=== PATIENT | male | born 1945 | race Caucasian/White ===

== ENCOUNTER 2016-08-01 11:20 | Emergency (ER) | payer MEDICARE, OTHER ==
[2016-08-01 12:57] LABS: HEMOGLOBIN 12.9 gm/dl (14.0-17.5); RED BLOOD COUNT 4.34 M/UL (4.20-5.50); WHITE BLOOD COUNT 6.9 K/UL (4.5-11.0)
[2016-08-01 13:18] LABS: BUN/CREATININE RATIO 15 (0-10)
== END 2016-08-01 16:05 | disposition home or self-care (01) ==
LOC: ER1 11:20
PROVIDERS: Physician Assistant Medical
DX: R10.84 Generalized abdominal pain (principal); E11.9 Type 2 diabetes mellitus without complications; I10 Essential (primary) hypertension
CPT/HCPCS: 36415; 80053; 81001; 82150; 83605; 83690; 85025; 99284; J7050; Q9962

== ENCOUNTER 2020-06-03 09:27 | Emergency (ER) | payer MEDICARE, OTHER ==
[~2020-06-03 09:27] MED LIST: AUGMENTIN 875-1 EACH PO; CALCIUM 600 +1 EAC3 PO; CLARITIN10 MG PO; COL-RITE250 MG PO; ECOTRIN81 MG PO; FLEXERIL 10 MG10 MG PO; HYDROCODON-ACE1 EAC6 PO; KLONOPIN1 MG PO; LEVEMIR100 UNIT/1 SQ; LIPITOR TAB 2020 MG PO; MIRTAZAPINE45 MG PO; MOBIC7.5 MG PO; NEURONTIN 300300 MG PO; NOVOLOG100 UNIT/1 SQ; ZESTRIL40 MG PO
[2020-06-03 10:46] LABS: HEMOGLOBIN 14.2 gm/dl (14.0-17.5); RED BLOOD COUNT 4.72 M/UL (4.20-5.50); WHITE BLOOD COUNT 5.6 K/UL (4.5-11.0)
[2020-06-03 11:34] LABS: BUN/CREATININE RATIO 8 (0-10)
[2020-06-03] MEDS ORDERED: OMNICEF 300 MG300 MG PO (11:51)
[2020-06-03] MEDS ORDERED: ZITHROMAX250 MG PO (11:51)
[2020-06-03] MEDS ORDERED: TESSALON PERLE100 MG PO (11:52)
== END 2020-06-03 11:59 | disposition home or self-care (01) ==
LOC: ER1 09:27
PROVIDERS: Physician Assistant
DX: J18.9 Pneumonia, unspecified organism (principal); R42 Dizziness and giddiness; Z20.822 Contact with and (suspected) exposure to COVID-19
CPT/HCPCS: 0240U; 71045; 80053; 82550; 82553; 83874; 84484; 85025; 93005; 99284

== ENCOUNTER 2020-12-19 12:22 | Emergency (ER) | payer MEDICARE, OTHER ==
[~2020-12-19 12:22] MED LIST changes: +OMNICEF 300 MG300 MG PO; +TESSALON PERLE100 MG PO; +ZITHROMAX250 MG PO
[2020-12-19 13:13] LABS: HEMOGLOBIN 15.8 gm/dl (14.0-17.5); RED BLOOD COUNT 5.22 M/UL (4.20-5.50); WHITE BLOOD COUNT 7.3 K/UL (4.5-11.0)
[2020-12-19 13:41] LABS: BUN/CREATININE RATIO 10 (0-10)
[2020-12-19] MEDS ORDERED: MEDROL4 MG PO (23:25)
[2020-12-19] MEDS ORDERED: ZITHROMAX500 MG PO (23:25)
== END 2020-12-19 23:45 | disposition home or self-care (01) ==
LOC: ER1 12:22
PROVIDERS: Physician Assistant
DX: J32.9 Chronic sinusitis, unspecified (principal); E11.9 Type 2 diabetes mellitus without complications; I10 Essential (primary) hypertension; Z20.822 Contact with and (suspected) exposure to COVID-19
CPT/HCPCS: 70450; 80053; 81001; 82550; 82553; 83874; 84484; 85025; 93005; 96372; 99284; J2930; U0002

== ENCOUNTER 2021-01-10 13:02 | Observation (INO) | payer MEDICARE, OTHER ==
[~2021-01-10] VITALS: Ht 175.3 cm; Wt 83.5 kg
[~2021-01-10 13:02] MED LIST changes: +MEDROL4 MG PO; +ZITHROMAX500 MG PO
[2021-01-10 14:14] LABS: HEMOGLOBIN 15.3 gm/dl (14.0-17.5); RED BLOOD COUNT 5.25 M/UL (4.20-5.50); WHITE BLOOD COUNT 7.8 K/UL (4.5-11.0)
[2021-01-10 14:44] LABS: BUN/CREATININE RATIO 13 (0-10)
[2021-01-11 08:27] LABS: HEMOGLOBIN 15.4 gm/dl (14.0-17.5); RED BLOOD COUNT 5.33 M/UL (4.20-5.50); WHITE BLOOD COUNT 6.2 K/UL (4.5-11.0)
--- NOTE | 2021-01-12 01:51 | NUR ---
PT STATED TO PRIMARY RN THAT HE DOES NOT WANT TO BE WOKEN UP FOR VITAL SIGNS IF HE IS SLEEPING. TECH MADE AWARE AND PATIENT NOT DISTURED WHILE SLEEPING FOR VS CHECKS. KODAK
[2021-01-12] MEDS ORDERED: MECLIZINE HCL25 MG PO (08:33)
[2021-01-12] MEDS ORDERED: ZESTRIL2.5 MG PO (08:33)
[2021-01-12] MEDS ORDERED: LEVEMIR100 UNIT/1 SQ (08:33)
== END 2021-01-12 09:48 | disposition home or self-care (01) ==
LOC: ER1 13:02 → M/S 17:29 → CDU 17:29 → M/S 20:27
PROVIDERS: Physician Assistant; ADMIT Internal Medicine
DX: R55 Syncope and collapse (principal); N17.9 Acute kidney failure, unspecified; I12.9 Hypertensive chronic kidney disease with stage 1 through stage 4 chronic kidney disease, or unspecified chronic kidney disease; E11.22 Type 2 diabetes mellitus with diabetic chronic kidney disease; N18.30 Chronic kidney disease, stage 3 unspecified; J44.9 Chronic obstructive pulmonary disease, unspecified; E03.9 Hypothyroidism, unspecified; E78.5 Hyperlipidemia, unspecified; E11.65 Type 2 diabetes mellitus with hyperglycemia; G89.29 Other chronic pain; F41.9 Anxiety disorder, unspecified; F32.9 Major depressive disorder, single episode, unspecified; Z99.81 Dependence on supplemental oxygen; Z86.16 Personal history of COVID-19; Z23 Encounter for immunization; Z79.4 Long term (current) use of insulin; Z79.891 Long term (current) use of opiate analgesic; Z79.1 Long term (current) use of non-steroidal anti-inflammatories (NSAID); Z79.82 Long term (current) use of aspirin; Z79.899 Other long term (current) drug therapy; Z20.822 Contact with and (suspected) exposure to COVID-19
CPT/HCPCS: ECHO; 36415; 70450; 70551; 71045; 80048; 80053; 80061; 80307; 81001; 82550; 82553; 82962; 83036; 83874; 84439; 84443; 84484; 85025; 85027; 90686; 93005; 93306; 93880; 97116-GP-CQ; 97161; 97166; 99285; G0008; G0378; J7040; U0002

== ENCOUNTER 2021-02-06 14:15 | Observation (INO) | payer MEDICARE, OTHER ==
[~2021-02-06] VITALS: Ht 175.3 cm; Wt 78.5 kg
[~2021-02-06 14:15] MED LIST changes: +MECLIZINE HCL25 MG PO; +ZESTRIL2.5 MG PO
[2021-02-06 15:40] LABS: HEMOGLOBIN 16.4 gm/dl (14.0-17.5); RED BLOOD COUNT 5.43 M/UL (4.20-5.50); WHITE BLOOD COUNT 6.9 K/UL (4.5-11.0)
[2021-02-06 16:10] LABS: BUN/CREATININE RATIO 6 (0-10)
[2021-02-07 06:49] LABS: WHITE BLOOD COUNT 6.1 K/UL (4.5-11.0)
[2021-02-07 07:29] LABS: RED BLOOD COUNT 4.64 M/UL (4.20-5.50)
[2021-02-07 08:09] LABS: BUN/CREATININE RATIO 6 (0-10)
[2021-02-07] MEDS ORDERED: AUGMENTIN 875-1 EACH PO (10:47)
[2021-02-07] MEDS ORDERED: ZITHROMAX250 MG PO (10:47)
[2021-02-07] MEDS ORDERED: ZITHROMAX500 MG PO (12:22)
[2021-02-07] MEDS ORDERED: LEVEMIR100 UNIT/1 SQ (12:27)
[2021-02-07] MEDS ORDERED: DEX4 GLUCOSE4 GM PO (12:27)
== END 2021-02-07 17:36 | disposition home or self-care (01) ==
LOC: ER1 14:15 → MED SURG 4 18:07 → CDU 18:07 → MED SURG 4 22:20
PROVIDERS: Student in an Organized Health Care Education/Training Program; ADMIT Internal Medicine
DX: R42 Dizziness and giddiness (principal); R41.0 Disorientation, unspecified; H53.9 Unspecified visual disturbance; E11.22 Type 2 diabetes mellitus with diabetic chronic kidney disease; N18.9 Chronic kidney disease, unspecified; J44.9 Chronic obstructive pulmonary disease, unspecified; E03.9 Hypothyroidism, unspecified; I10 Essential (primary) hypertension; E78.5 Hyperlipidemia, unspecified; K59.09 Other constipation; G89.4 Chronic pain syndrome; Z79.4 Long term (current) use of insulin; Z20.822 Contact with and (suspected) exposure to COVID-19; E11.40 Type 2 diabetes mellitus with diabetic neuropathy, unspecified; J18.9 Pneumonia, unspecified organism; Z79.82 Long term (current) use of aspirin; G92.9 Unspecified toxic encephalopathy
CPT/HCPCS: 36415; 36600; 70450; 71045; 71046; 80053; 80307; 81001; 82140; 82550; 82553; 82803; 82962; 83605; 83874; 84484; 85025; 85027; 87040; 93005; 96372; 96374; 97161; 99285; G0378; J0696; J1650; J7030; U0002

== ENCOUNTER 2021-02-26 10:55 | Emergency (ER) | payer MEDICARE, OTHER ==
[~2021-02-26 10:55] MED LIST changes: +DEX4 GLUCOSE4 GM PO
[2021-02-26 11:57] LABS: HEMOGLOBIN 14.1 gm/dl (14.0-17.5); RED BLOOD COUNT 4.66 M/UL (4.20-5.50); WHITE BLOOD COUNT 6.4 K/UL (4.5-11.0)
[2021-02-26 12:16] LABS: BUN/CREATININE RATIO 10 (0-10)
== END 2021-02-26 17:33 | disposition home or self-care (01) ==
LOC: ER1 10:55
PROVIDERS: Physician Assistant
DX: R44.0 Auditory hallucinations (principal); J44.9 Chronic obstructive pulmonary disease, unspecified; E03.9 Hypothyroidism, unspecified; I12.9 Hypertensive chronic kidney disease with stage 1 through stage 4 chronic kidney disease, or unspecified chronic kidney disease; N18.9 Chronic kidney disease, unspecified; E11.22 Type 2 diabetes mellitus with diabetic chronic kidney disease; Z87.828 Personal history of other (healed) physical injury and trauma
CPT/HCPCS: 80053; 80307; 81001; 84439; 84443; 85025; 93005; 99285; G0480